=== PATIENT | female | born 1950 | race Caucasian/White ===

== ENCOUNTER → 2018-12-24 | Outpatient (CLI) | payer MEDICARE, OTHER ==
[~2018-12-24] VITALS: Ht 157.5 cm; Wt 48.5 kg
[~2018-12-24] MED LIST: ADULT LOW DOSE81 MG PO; MOBIC
[2018-12-24 14:31] VITALS: BP 110/78
[2018-12-24 14:40] LABS: HEMATOCRIT 38.3 % (37.0-47.0); MCH 33.9 pg (26.0-34.0); MCV 99.8 fL (80.0-100.0); RBC 3.84 mil/uL (4.20-5.00); RDW-CV 13.8 % (10.5-14.5); WBC 5.5 thou/uL (4.0-11.0)
[2018-12-24 14:50] LABS: APTT 26.7 Seconds (25.0-31.3); PROTIME 10.7 Seconds (9.20-11.50)
[2018-12-24 14:54] LABS: ANION GAP 5 mmol/L (7-16); BUN 25 mg/dL (7-18); CALCIUM 8.3 mg/dL (8.5-10.1); CHLORIDE 106 mmol/L (98-107); CO2 30 mmol/L (21-32); CREATININE 0.7 mg/dL (0.6-1.3); GLUCOSE 96 mg/dL (70-99); POTASSIUM 3.8 mmol/L (3.5-5.1); SODIUM 141 mmol/L (136-145)
[2018-12-24 14:58] LABS: ALBUMIN 2.9 g/dL (3.4-5.0); ALKALINE PHOSPHATASE 50 U/L (46-116); CHOLESTEROL 208 mg/dL (<200); HDL CHOLESTEROL 69 mg/dL (>40); LDL CHOLESTEROL 128 mg/dL (<100); SGOT 25 U/L (15-37); SGPT 33 U/L (30-65); TOTAL BILIRUBIN 0.2 mg/dL (<0.1-1.0); TOTAL PROTEIN 5.2 g/dL (6.4-8.2); TRIGLYCERIDE 56 mg/dL (<150); VLDL 11 mg/dL (<40)
[2018-12-24 14:59] LABS: SERUM ASSESSMENT Clear
[2018-12-24 15:45] VITALS: BP 99/68
[2018-12-24 16:00] VITALS: BP 102/77
[2018-12-24 16:15] VITALS: BP 102/77
[2018-12-24 16:45] VITALS: BP 115/80
--- NOTE | 2018-12-25 17:42 | CARD ---
[address] [address] CARDIAC CATH REPORT Name: ANNELISE BUENO Janie Room: [facility]#: [id number] Admission: 12/24/18 Attend Phys: Jesse Todd MD Discharge: Date of : 50 Report #: [id number] THIS REPORT FOR: //name// APPROVED REPORT Study performed: 12/24/2018 14:20:16 Patient Details Patient Status: Out-Patient Room #: The patient is a 68 year-old female Event Personnel Jesse Todd Baker Paint, Sanjuana Shepherd RN Start Up Specialist, Stas Oliveira (R) Nicol Jung Brad RIVET DRIVER Monitor Procedures Performed Left Heart Cath w/or w/o Coronaries [id number] [facility] , Aortogram Procedure Narrative A 6fr Ultimum Sheath sheath was inserted into the . Coronary angiography was performed using coronary diagnostic catheters. The right coronary system was accessed and visualized with a JR4 catheter. The left coronary system was accessed and visualized with a JL4 catheter. The left ventricle was accessed and visualized with a Angled PIG catheter. The patient tolerated the procedure well and there were no complications associated with the procedure. Intraoperative Conscious Sedation Fentanyl 25 mcg Dose: 186 mGy Contrast Type and Amount: Visipaque 125 ml Diagnostic Cath Left Main Normal. Bifurcates into the LAD and circumflex coronary arteries. LAD Normal in the proximal mid and distal portion. Diagonal 1 Normal. Diagonal 2 Normal. Diagonal 3 Normal. Circumflex Normal throughout its course. The vessel terminates in a large branched first obtuse marginal branch. OM1 Normal large branch. [address] [address] CARDIAC CATH REPORT Name: ANNELISE BUENO Room: [facility]#: [id number] Admission: 12/24/18 Attend Phys: Jesse Todd MD Discharge: Date of : 50 Report #: [id number] Right Coronary Normal in the proximal mid and distal portion. R PDA Normal. RPLV Normal active branch. Left Ventriculography The left ventricle is normal in size with normal contractility. The left ventricular ejection fraction is estimated to be 65-70%. Left ventricular wall motion abnormalities are not present. Hemodynamics The aortic pressure is 109/59 mmHg with a mean of 82 mmHg. The left ventricular pressure is 94/0 mmHg with a mean of mmHg. The left ventricular end diastolic pressure is 18 mmHg. Conclusion 1. Normal coronary arteries. 2. Normal left ventricular systolic function. 3. Normal left ventricular end-diastolic pressure. Recommendations 1. Continue current management. <ELECTRONICALLY SIGNED> By: Jesse Todd MD, [facility] 12/25/18 [phone] [id number] Todd MD, FACC /INF
== END | disposition home or self-care (01) ==
LOC: M.CL 13:57
PROVIDERS: Internal Medicine Cardiovascular Disease
DX: R07.9 Chest pain, unspecified (principal); Z98.890 Other specified postprocedural states; Z88.8 Allergy status to other drugs, medicaments and biological substances; Z79.82 Long term (current) use of aspirin

== ENCOUNTER → 2019-12-10 | Outpatient (CLI) | payer MEDICARE, OTHER ==
[2019-12-10 16:08] LABS: CALCIUM 8.1 mg/dL (8.5-10.1); CREATININE 0.5 mg/dL (0.6-1.3); POTASSIUM 3.8 mmol/L (3.5-5.1)
== END ==
LOC: M.LAB 15:32
PROVIDERS: Nurse Practitioner
DX: R00.2 Palpitations (principal)

== ENCOUNTER → 2021-06-15 | Outpatient (CLI) | payer MEDICARE, OTHER ==
--- NOTE | 2021-06-15 17:10 | CARDNUC ---
[place] [address] CARDIAC NUCLEAR IMAGING REPORT Name: ANNELISE BUENO Room: [facility]#: [id number] Admission: 06/15/21 Attend Phys: Shahzad Caputo, Discharge: Date of : 50 Date of Service: 06/15/21 1710 Report #: [id number] THIS REPORT FOR: cc: Anel Guerra MD, Lin W. MD Liston, Michael J. MD [facility] ~ APPROVED REPORT Study performed: 06/15/2021 14:20:36 Exam: Nuclear Stress Test Indication: Chest pain, Abnormal EKG Patient Location: Out-Patient Stress Nurse: Nguyen Vazquez RN Ht: 5 ft 2 in Wt: 106 lbs BSA: 1.46 m2 BMI: 19.38 Medical History Medical History: HTN Medications: asa, metoprolol Allergies: No known drug allergies Cardiac Risk Factors: Age, FHX of CAD, HTN Exercise History: Indeterminate Meds Held (24 hrs): metoprolol Stress Test Details Stress Test: Pharmacologic stress testing performed using 0.4 mg of regadenoson per 5 mL given IV over 10 seconds. Reason for pharmacologic stress test: arthritis. HR Resting HR: 71 bpm Max Heart Rate (APMHR): 150 bpm Max HR Achieved: 104 bpm Target HR (85% APMHR): 127 bpm % of APMHR: 69 Recovery HR: 94 bpm BP Resting BP: 115/72 mmHg Max BP: 113/70 mmHg ECG Resting ECG: Sinus Rhythm Stress ECG: [place] [address] CARDIAC NUCLEAR IMAGING REPORT Name: ANNELISE BUENO Room: [facility]#: [id number] Admission: 06/15/21 Attend Phys: Shahzad Caputo, Discharge: Date of : 50 Date of Service: 06/15/21 1710 Report #: [id number] Change: None Arrhythmia: None Recovery ECG: Clear Recovery ST Change: None Clinical Reason for Termination: Completed protocol The patient tolerated Lexiscan infusion without significant cardiac symptoms. Stress ECG Conclusion The baseline twelve-lead EKG shows sinus rhythm without significant ST segment or T wave abnormality. EKGs obtained during and post Lexiscan infusion show sinus rhythm and sinus tachycardia with no significant ST segment or T wave changes when compared to baseline. There were no stress-induced arrhythmias. NM EXAM: Myocardial Perfusion REST/STRESS Resting Data Rest SPECT myocardial perfusion imaging was performed in supine position 30 minutes following the intravenous injection of 9.6 mCi of Tc-99m Sestamibi. Time of rest injection: 1315 The images were gated to evaluate regional wall motion and calculate left ventricular ejection fraction. Administration Route: IV Administration Site: Left AC Pharmacologic Stress Pharmacologic stress test was performed by injecting Regadenoson 0.4 mg IV push followed by the intravenous injection of 32.7 mCi of Tc-99m Sestamibi. Time of stress injection: 1420 Administration Route: IV Administration Site: Left AC Heart Rate at time of stress injection: 104 bpm. Gated Stress SPECT was performed 45 minutes after stress injection. The images were gated to evaluate regional wall motion and calculate left ventricular ejection fraction. Prone imaging was performed. Study Quality Study: Good Artifact: [place] [address] CARDIAC NUCLEAR IMAGING REPORT Name: ANNELISE BUENO Room: [facility]#: [id number] Admission: 06/15/21 Attend Phys: Shahzad Caputo, Discharge: Date of : 50 Date of Service: 06/15/21 1710 Report #: [id number] Study Data At rest, the left ventricular ejection fraction was 72%.. Post stress, the left ventricular ejection was 65%.. TID = 1.01. Perfusion Perfusion images obtained in the supine position at rest and post Lexiscan stress showed uniform uptake of the radioisotope throughout the myocardium. There were no defects to suggest infarct or ischemia. Post-rest prone images show mild photopenia in the mid anterior wall consistent with breast attenuation artifact. Wall Motion Normal left ventricular wall motion. Nuclear Conclusion ECG Findings: negative for ischemia Clinical Findings: negative for ischemia Nuclear Findings: negative for ischemia Exercise Capacity: not assessed Left Ventricular Function: normal Risk Study: low Perfusion images show no defect to suggest infarct or ischemia. Left ventricular systolic function is normal on gated studies. This is a low risk study. <Conclusion> The baseline twelve-lead EKG shows sinus rhythm without significant ST segment or T wave abnormality. EKGs obtained during and post Lexiscan infusion show sinus rhythm and sinus tachycardia with no significant ST segment or T wave changes when compared to baseline. There were no stress-induced arrhythmias. <ELECTRONICALLY SIGNED> By: Jesse Todd MD, FACC 06/15/211709 09 09 Jesse Todd MD, FACC /INF
== END ==
LOC: M.NUC 05-16 16:23
PROVIDERS: ATTEND Internal Medicine
DX: R07.9 Chest pain, unspecified (principal); M79.602 Pain in left arm